=== PATIENT | male | born 1930 | race Caucasian/White ===

== ENCOUNTER 2016-07-06 12:54 | Inpatient (IN) | payer OTHER ==
[2016-07-06] MEDS ORDERED: SODIUM CHLORIDE 1,000 ML IV STA ×2 (13:34→20:41)
[2016-07-06 13:48] LABS: VENOUS PH 7.26 (7.32-7.42)
[2016-07-06 13:58] LABS: MCH 25.3 pg (25.7-33.7); MCHC 31.7 g/dl (32.0-35.9); MEAN CELL VOLUME 79.7 fl (80-96); MEAN PLT VOLUME 10.1 fl (7.5-11.1); PLATELET COUNT 57 K/MM3 (134-434); WHITE BLOOD COUNT 15.6 K/mm3 (4.0-10.0)
--- NOTE | 2016-07-06 14:09 | PDOC ---
History of Present Illness - General Chief Complaint: Urinary Problem Stated Complaint: SEPSIS Time Seen by Provider: 07/06/16 13:09 History Source: Longterm Records Exam Limitations: Dementia - History of Present Illness Initial Comments: 07/06/16 14:08 85-year-old male from [facility] sent in for evaluation of pyuria that was noted this morning after patient was not making urine and Herrera catheter was changed. Patient arrives with a blood pressure of 90/50 guarding over his suprapubic region. Patient is unable to communicate needs except that he is moaning and appears uncomfortable. Patient with history of recurrent UTI with indwelling Herrera catheter. Severity: moderate Associated Symptoms: reports: weakness, other Past History - Past Medical History Allergies/Adverse Reactions: Allergies Allergy/AdvReac Type Severity Reaction Status Date / Time No Known Allergies Allergy Verified 07/06/16 13:06 Cardiac Disorders: Yes (angina) GI Disorders: Yes (uti) HTN: Yes Hypercholesterolemia: Yes Psychiatric Problems: Yes (depression) - Psycho/Social/Smoking Cessation Hx Anxiety: No Suicidal Ideation: No Smoking History: Unknown if ever smoked Have you smoked in the past 12 months: No Information on smoking cessation initiated: No Hx Alcohol Use: No Drug/Substance Use Hx: No Patient Lives Alone: No Lives with/in: assisted Review of Systems - Review of Systems Able to Perform ROS?: Yes Constitutional: Yes: Weakness Respiratory: No: Symptoms reported Cardiac (ROS): No: Symptoms Reported ABD/GI: No: Symptoms Reported : Yes: Other Integumentary: No: Symptoms Reported *Physical Exam - Vital Signs Last Vital Signs Temp Pulse Resp BP Pulse Ox 98.7 F 104 H 24 93/50 98 07/06/16 13:06 07/06/16 13:06 07/06/16 13:06 07/06/16 13:06 07/06/16 13:06 - Physical Exam General Appearance: Yes: Nourished, Appropriately Dressed, Mild Distress HEENT: positive: EOMI, FABY, TMs Normal, Pharynx Normal (dry) Neck: positive: Normal Thyroid, Supple Respiratory/Chest: positive: Lungs Clear, Normal Breath Sounds. negative: Respiratory Distress, Accessory Muscle Use Cardiovascular: positive: Tachycardia. negative: Regular Rhythm, Murmur Gastrointestinal/Abdominal: positive: Normal Bowel Sounds, Soft, Guarding, Tenderness (mid suprapubic). negative: Distended, Hernia, Mass Male Genitalia: positive: other (Noted dry blood around the meatus) Musculoskeletal: negative: CVA Tenderness Extremity: positive: Normal Capillary Refill. negative: Pedal Edema Integumentary: positive: Dry, Warm Neurologic: positive: Motor Strength 5/5 (moving all extremeties actively) ED Treatment Course - LABORATORY CBC & Chemistry Diagram: 07/06/16 13:30 07/06/16 13:30 - ADDITIONAL ORDERS Additional order review: Laboratory Results 07/06/16 13:45 VBG pH 7.26 L POC VBG pCO2 34.6 L POC VBG pO2 36.8 Mixed VBG HCO3 15.0 L - RADIOLOGY Radiology Studies Ordered: Category Date Time Status CHEST X-RAY PORTABLE* [RAD] Stat Radiology 07/06/16 13:34 Ordered PELVIC / BLADDER US [US] Stat Ultrasound 07/06/16 13:35 Ordered Medical Decision Making - Critical Care Time Total Critical Care Time (minutes): 55 Critical Care Statement: The care of this patient involved high complexity decision making to prevent further life threatening deterioration of the patient 's condition and/or to evalute & treat vital organ system(s) failure or risk of failure. - Medical Decision Making 07/06/16 14:27 Sent over for pyuria. catheter was changed initially by the assisted since patient and no urine output in his catheter. Patient once he arrived here Herrera catheter #20 was removed and reinserted a #18 with noted pyuria so irrigated with 40 mL of sterile water and patient had return clear fluid. Patient ordered for septic workup including an ultrasound of the bladder. 07/06/16 14:44 Laboratory Tests 07/06/16 07/06/16 07/06/16 13:30 13:30 13:30 WBC 15.6 H Hgb 11.1 L Hct 34.9 L Plt Count 57 L VBG pH POC VBG pCO2 Mixed VBG HCO3 Sodium 139 Potassium 5.9 H Chloride 101 Carbon Dioxide 15 L Anion Gap 23 H BUN 88 H Creatinine 7.7 H* Creat Clearance w eGFR 6.72 Random Glucose 46 L* Lactic Acid 1.611 Calcium 7.7 L Total Bilirubin 0.8 AST 90 H ALT 49 Alkaline Phosphatase 101 Creatine Kinase 931 H Troponin I 0.13 H Total Protein 5.6 L Albumin 2.1 L Blood Type 07/06/16 07/06/16 13:30 13:45 WBC Hgb Hct Plt Count VBG pH 7.26 L POC VBG pCO2 34.6 L Mixed VBG HCO3 15.0 L Sodium Potassium Chloride Carbon Dioxide Anion Gap BUN Creatinine Creat Clearance w eGFR Random Glucose Lactic Acid Calcium Total Bilirubin AST ALT Alkaline Phosphatase Creatine Kinase Troponin I Total Protein Albumin Blood Type O POSITIVE For vancomycin D50, insulin, albuterol and calcium gluconate. Patient will need to go to the ICU and will consult belt line feeder and physician for admission. 07/06/16 14:49 Laboratory Tests 07/06/16 07/06/16 13:30 13:50 Creatinine 7.7 H* Random Glucose 46 L* Acetone, Qual Positive moderate 2+ 07/06/16 14:55 Case discussed with belt line feeder. Patient accepted to unit. Call placed to Dr. leary for admission. Patient will have repeat BGM shortly. Will hold on IV fluids since BP is maintaining 90s over 50s. 07/06/16 15:12\Case discussed with Dr. Leary and accepted patient to service. Patient still appears uncomfortable and is slightly tachycardic. Patient will be ordered for IV Tylenol. 07/06/16 16:16 Laboratory Tests 07/06/16 07/06/16 13:30 15:20 Neutrophils % 94.0 H POC Glucometer 128.11462 Chest x-ray negative for acute findings. Family at bedside. Patient appears more comfortable. Blood pressure remains stable *DC/Admit/Observation/Transfer Diagnosis at time of Disposition: Hyperkalemia, Hypoglycemia, Acute renal insufficiency Sepsis Qualifiers: Sepsis type: sepsis due to unspecified organism Qualified Code(s): A41.9 - Sepsis, unspecified organism UTI (urinary tract infection) Qualifiers: Urinary tract infection type: acute cystitis Hematuria presence: without hematuria Qualified Code(s): N30.00 - Acute cystitis without hematuria - Discharge Dispostion Admit: Yes - Referrals
[2016-07-06] MEDS ORDERED: LEVOFLOXACIN 750 MG IVPB 150 ML IVPB ONE ×2 (14:11→14:49)
[2016-07-06 14:12] LABS: INR 1.06 (0.82-1.09); PROTHROMBIN TIME (PATIENT) 11.7 SEC (9.98-11.88)
[2016-07-06 14:22] LABS: ALBUMIN 2.1 g/dl (3.4-5.0); BILIRUBIN,TOTAL 0.8 mg/dL (0.2-1.0); CALCIUM 7.7 mg/dL (8.5-10.1); TOT PROT 5.6 g/dl (6.4-8.2)
[2016-07-06 14:27] LABS: COCKROFT - GAULT 6.05; TROPONIN I 0.13 ng/ml (0.00-0.05)
[2016-07-06] MEDS ORDERED: DEXTROSE 50%-WATER 50 ML DISP.SYRIN ONE (14:38)
[2016-07-06 14:39] LABS: CREATININE 7.7 mg/dL (0.7-1.3)
[2016-07-06] MEDS ORDERED: DEXTROSE 50%-WATER - 25 GM/50 ML VIAL IVPUSH ONE ×2 (14:40→22:22)
[2016-07-06] MEDS ORDERED: VANCOMYCIN 1,000 MG in DEXTROSE 5%-WATER - 250 ML IVPB ONE (14:42)
[2016-07-06] MEDS ORDERED: SODIUM BICARBONATE 8.4% 50 MEQ/50 ML DISP.SYRIN IVPUSH ONE ×2 (14:46→22:28)
[2016-07-06] MEDS ORDERED: INSULIN REGULAR HUMAN 100 UNITS/ML *VIAL IVPUSH ONE ×2 (14:46→22:26)
[2016-07-06] MEDS ORDERED: CALCIUM GLUCONATE 10% - 1,000 MG/10 ML VIAL IVPUSH ONE (14:47)
[2016-07-06] MEDS ORDERED: SODIUM BICARBONATE 8.4% 50 MEQ/50 ML VIAL ONE (14:48)
[2016-07-06] MEDS ORDERED: CALCIUM GLUCONATE 10% - 1,000 MG/10 ML VIAL ONE (14:48)
[2016-07-06] MEDS ORDERED: VANCOMYCIN 1 GRAM (PRE-DOCKED) 250 ML IVPB ONE (14:48)
[2016-07-06] MEDS ORDERED: INSULIN REGULAR HUMAN 100 UNITS/ML *VIAL ONE (14:49)
[2016-07-06 14:57] LABS: METAMYELOCYTE 2 % (0-2)
[2016-07-06 14:58] LABS: PLATELET ESTIMATE DECREASED (NORMAL)
[2016-07-06 14:59] LABS: ACANTHOCYTES 2+; ANISOCYTOSIS 2+; MICROCYTOSIS 1+
[2016-07-06] MEDS ORDERED: ACETAMINOPHEN 1000 MG/100 ML VIAL (NON FORMULARY) IVPB ONE (15:12)
[2016-07-06] MEDS ORDERED: ACETAMINOPHEN INJECTION 100 ML IVPB ONE (15:23)
--- NOTE | 2016-07-06 16:10 | EKG ---
Test Reason : Blood Pressure : / mmHG Vent. Rate : 103 BPM Atrial Rate : 103 BPM P-R Int : 126 ms QRS Dur : 084 ms QT Int : 356 ms P-R-T Axes : 037 007 068 degrees QTc Int : 466 ms SINUS TACHYCARDIA LOW VOLTAGE QRS BORDERLINE ECG NO PREVIOUS ECGS AVAILABLE Confirmed by MOON CHAMBERS MD ([id number]) on 07/06/2016 4:10:17 PM Referred By: Confirmed By:MOON CHAMBERS MD
[2016-07-06 16:22] LABS: URINE APPEARANCE TURBID; URINE BILIRUBIN NEGATIVE (NEGATIVE); URINE BLOOD 3+ (NEGATIVE); URINE COLOR LYELLOW; URINE GLUCOSE (UA) NEGATIVE (NEGATIVE); URINE KETONE TRACE (NEGATIVE)
[2016-07-06 16:23] LABS: URINE LEUK ESTERASE 2+ (NEGATIVE); URINE NITRITE POSITIVE (NEGATIVE); URINE PROTEIN 3+ (NEGATIVE); URINE RBC 25-30 /hpf (0-3); URINE UROBILINOGEN 0.2 E.U/dl E.U./dl (0.2-1.0)
[2016-07-06 16:24] LABS: URINE BACTERIA FEW /hpf (NONE SEEN); URINE MUCUS MODERATE; URINE WBC TNTC /hpf (3-5)
[2016-07-06] MEDS ORDERED: DEXTROSE 5%-0.45% SALINE 1,000 ML IV SCH (18:45)
[2016-07-06] MEDS: morphine CARPU-JECT 2 MG/1 ML DISP.SYRIN IVPUSH PRN ×3 (19:17→23:36)
[2016-07-06] MEDS: PIPERACILLIN/TAZOB 2.25 GM/50 ML PRE-DOCKED BAG IVPB SCH (19:17)
--- NOTE | 2016-07-06 21:02 | CONSULT ---
Consult Consult Specialty:: Pulm/CCM Reason for Consultation:: UTI - History of Present Illness Chief Complaint: Suprapubic pain History of Present Illness: 85yom with PMHx HTN, HLD, Depression, chronic hameed cath brought in t ED from [facility] with pyuria. In ED BP 93/50, HR 104, 98.7, O2 sat 98% on room air. Pt indicated supra pubic pain. Hameed changed. Labs notable for WBC 15.6 N 94%, K 5.9, BUN/creat 88/7.7, lact 1.6, trop 0.13. Urine WBC too numerous to count. CXR lungs clear. Hyperkalemia cocktail given. Bolus 1L NS. Started on antibiotics Vanco, levaquin then to Zosyn. He was transferred to ICU for further managemt. Of note as per family pt is DNR/DNI comfort measures only. - History Source History Provided By: Medical Record Limitations to Obtaining History: Other (Pt moaning and incoherent) - Alcohol/Substance Use Hx Alcohol Use: No - Smoking History Smoking history: Unknown if ever smoked Have you smoked in the past 12 months: No Home Medications - Allergies Allergies/Adverse Reactions: Allergies Allergy/AdvReac Type Severity Reaction Status Date / Time No Known Allergies Allergy Verified 07/06/16 13:06 - Home Medications Home Medications: Ambulatory Orders Aa/Hydrolyzed Collagen, Whey [Lps Neutral Flavor Liquid] 30 ml PO DAILY Ascorbate Calcium [Vitamin C] 500 mg PO TID 07/06/16 Aspirin [ASA -] 81 mg PO DAILY 07/06/16 Atorvastatin Ca [Lipitor] 80 mg PO HS 07/06/16 Calcium Carbonate/Vitamin D3 [Oyster Shell 500-Vit D3 200 Tb] 1 each PO DAILY Ceftriaxone [Rocephin 1Gm Ivpb (Pre-Docked)] 1 gm IVPB BID 07/06/16 Docusate Sodium 100 mg PO HS 07/06/16 Escitalopram Oxalate [Lexapro -] 5 mg PO DAILY 07/06/16 Ferrous Sulfate 325 mg PO TID 07/06/16 L. Acidophilus/Pectin, [place] [Acidophilus Capsule] 1 each PO DAILY 07/06/16 Lactulose 15 ml PO DAILY PRN 07/06/16 Melatonin 3 mg PO HS 07/06/16 Menthol/Zinc Oxide [Calmoseptine Ointment] 0 gm TP TID 07/06/16 Metoprolol Tartrate 12.5 mg PO BID 07/06/16 Oxycodone HCl 5 mg PO PRN 07/06/16 Quetiapine Fumarate [Seroquel -] 25 mg PO HS 07/06/16 Ranitidine HCl [Zantac] 150 mg PO BID 07/06/16 Sennosides [Senna] 2 tab PO HS 07/06/16 Trazodone HCl 50 mg PO HS 07/06/16 Family Disease History - Family Disease History Family History: Unremarkable Review of Systems Unable to obtain ROS, reason: Unable-Dementia Physical Exam Vital Signs: Vital Signs Temperature 97.3 F L 07/06/16 17:58 Pulse Rate 94 H 07/06/16 18:30 Respiratory Rate 20 07/06/16 18:30 Blood Pressure 94/75 07/06/16 18:30 O2 Sat by Pulse Oximetry (%) 95 07/06/16 18:30 Constitutional: Yes: Well Nourished, Other (NAD) Eyes: Yes: Conjunctiva Clear, Other (constricted pupils) HENT: Yes: WNL, Other (dry MM) Neck: Yes: Supple, Trachea Midline Cardiovascular: Yes: Tachycardia, Other (no m/r/g noted) Respiratory: Yes: CTA Bilaterally Gastrointestinal: Yes: Normal Bowel Sounds, Soft Renal/: Yes: Hameed Present Extremities: Yes: Cool Edema: No Peripheral Pulses WNL: Yes Psychiatric: Yes: Other (Awake ; incoherent) Labs: CBC,CMP WBC 15.6 K/mm3 (4.0-10.0) H 07/06/16 13:30 RBC 4.38 M/mm3 (4.00-5.60) 07/06/16 13:30 Hgb 11.1 GM/dL (11.7-16.9) L 07/06/16 13:30 Hct 34.9 % (35.4-49) L 07/06/16 13:30 MCV 79.7 fl (80-96) L 07/06/16 13:30 MCHC 31.7 g/dl (32.0-35.9) L 07/06/16 13:30 RDW 21.0 % (11.9-15.9) H 07/06/16 13:30 Plt Count 57 K/MM3 (134-434) L 07/06/16 13:30 MPV 10.1 fl (7.5-11.1) 07/06/16 13:30 Neutrophils % 94.0 % (42.8-82.8) H 07/06/16 13:30 Lymphocytes % 2.0 % (8-40) L 07/06/16 13:30 Band Neutrophils 1.0 % (0-10) 07/06/16 13:30 Metamyelocytes 2 % (0-2) 07/06/16 13:30 Differential Comment Manual diff done 07/06/16 13:30 Platelet Estimate Decreased (NORMAL) 07/06/16 13:30 Anisocytosis 2+ 07/06/16 13:30 Microcytosis 1+ 07/06/16 13:30 Acanthocytes (Spur) 2+ 07/06/16 13:30 Sodium 139 mmol/L (136-145) 07/06/16 13:30 Potassium 5.9 mmol/L (3.5-5.1) H 07/06/16 13:30 Chloride 101 mmol/L (98-107) 07/06/16 13:30 Carbon Dioxide 15 mmol/L (21-32) L 07/06/16 13:30 Anion Gap 23 (8-16) H 07/06/16 13:30 BUN 88 mg/dL (7-18) H 07/06/16 13:30 Creatinine 7.7 mg/dL (0.7-1.3) H* 07/06/16 13:30 Creat Clearance w eGFR 6.72 (>60) 07/06/16 13:30 POC Glucometer 101.58962 UNITS (()) 07/06/16 17:14 Random Glucose 46 mg/dL (74-106) L* 07/06/16 13:30 Lactic Acid 1.611 mmol/L (0.4-2.0) 07/06/16 13:30 Calcium 7.7 mg/dL (8.5-10.1) L 07/06/16 13:30 Phosphorus 5.9 mg/dL (2.5-4.9) H 07/06/16 13:30 Total Bilirubin 0.8 mg/dL (0.2-1.0) 07/06/16 13:30 AST 90 U/L (15-37) H 07/06/16 13:30 ALT 49 U/L (12-78) 07/06/16 13:30 Alkaline Phosphatase 101 U/L (45-117) 07/06/16 13:30 Creatine Kinase 931 IU/L (39-308) H 07/06/16 13:30 Creatine Kinase Index 0.7 % (0.0-5.0) 07/06/16 13:30 CK-MB (CK-2) 7.360 ng/ml (0.5-3.6) H 07/06/16 13:30 CK-MB (CK-2) Rel Index Cancelled 07/06/16 13:30 Troponin I 0.13 ng/ml (0.00-0.05) H 07/06/16 13:30 Total Protein 5.6 g/dl (6.4-8.2) L 07/06/16 13:30 Albumin 2.1 g/dl (3.4-5.0) L 07/06/16 13:30 Imaging - Results Chest X-ray: Report Reviewed (Clear lung valentine) Problem List - Problems (1) Acute renal insufficiency Code(s): N28.9 - DISORDER OF KIDNEY AND URETER, UNSPECIFIED (2) Hyperkalemia Code(s): E87.5 - HYPERKALEMIA (3) Hypoglycemia Code(s): E16.2 - HYPOGLYCEMIA, UNSPECIFIED (4) Sepsis Code(s): A41.9 - SEPSIS, UNSPECIFIED ORGANISM Qualifiers: Sepsis type: sepsis due to unspecified organism Qualified Code(s): A41.9 - Sepsis, unspecified organism (5) UTI (urinary tract infection) Code(s): N39.0 - URINARY TRACT INFECTION, SITE NOT SPECIFIED Qualifiers: Urinary tract infection type: acute cystitis Hematuria presence: without hematuria Qualified Code(s): N30.00 - Acute cystitis without hematuria Assessment/Plan 85 yom NHR with chronic hameed now with urosepsis. Plan: -HD monitoring -NC O2 as needed -Fluid bolus as needed -Cont Zosyn as per ID -Hameed care -Monitor BMP -Medically manage hyperkalemia -Not a candidate for HD -Morphine prn for pain
[2016-07-06 22:16] LABS: CALCIUM 7.1 mg/dL (8.5-10.1); COCKROFT - GAULT 6.16; CREATININE 7.1 mg/dL (0.7-1.3)
[2016-07-06] MEDS ORDERED: CALCIUM GLUCONATE 10% - 1,000 MG/10 ML VIAL IVPB ONE (22:27)
[2016-07-07] MEDS: morphine CARPU-JECT 2 MG/1 ML DISP.SYRIN IVPUSH PRN ×5 (02:10→16:09)
[2016-07-07] MEDS: PIPERACILLIN/TAZOB 2.25 GM/50 ML PRE-DOCKED BAG IVPB SCH (02:12)
[2016-07-07 06:42] LABS: CALCIUM 7.1 mg/dL (8.5-10.1); COCKROFT - GAULT 6.39; CREATININE 7.1 mg/dL (0.7-1.3); MAGNESIUM 2.2 mg/dL (1.8-2.4); PHOSPHOROUS 3.9 mg/dL (2.5-4.9)
[2016-07-07] MEDS ORDERED: PIPERACILLIN/TAZOB 2.25 GM/50 ML PRE-DOCKED BAG IVPB SCH (10:00)
[2016-07-07 10:59] VITALS: BMI 20.2
--- NOTE | 2016-07-07 10:59 | CON.NEP ---
Consult Consult Specialty:: nephrology Reason for Consultation:: ckd - History of Present Illness Chief Complaint: pt cant give history History of Present Illness: 85-year-old male from [facility] sent in for evaluation of pyuria that was noted yesterday after patient was not making urine and Herrera catheter was changed. Patient arrived with a blood pressure of 90/50 guarding over his suprapubic region. Patient is unable to communicate needs except that he is moaning and appears uncomfortable. Patient with history of recurrent UTI with indwelling Herrera catheter. I saw him in ICU. Hew moaned but did not say anything. - History Source History Provided By: Medical Record Limitations to Obtaining History: Dementia - Alcohol/Substance Use Hx Alcohol Use: No - Smoking History Smoking history: Unknown if ever smoked Have you smoked in the past 12 months: No Home Medications - Allergies Allergies/Adverse Reactions: Allergies Allergy/AdvReac Type Severity Reaction Status Date / Time No Known Allergies Allergy Verified 07/06/16 13:06 - Home Medications Home Medications: Ambulatory Orders Aa/Hydrolyzed Collagen, Whey [Lps Neutral Flavor Liquid] 30 ml PO DAILY Ascorbate Calcium [Vitamin C] 500 mg PO TID 07/06/16 Aspirin [ASA -] 81 mg PO DAILY 07/06/16 Atorvastatin Ca [Lipitor] 80 mg PO HS 07/06/16 Calcium Carbonate/Vitamin D3 [Oyster Shell 500-Vit D3 200 Tb] 1 each PO DAILY Ceftriaxone [Rocephin 1Gm Ivpb (Pre-Docked)] 1 gm IVPB BID 07/06/16 Docusate Sodium 100 mg PO HS 07/06/16 Escitalopram Oxalate [Lexapro -] 5 mg PO DAILY 07/06/16 Ferrous Sulfate 325 mg PO TID 07/06/16 L. Acidophilus/Pectin, [place] [Acidophilus Capsule] 1 each PO DAILY 07/06/16 Lactulose 15 ml PO DAILY PRN 07/06/16 Melatonin 3 mg PO HS 07/06/16 Menthol/Zinc Oxide [Calmoseptine Ointment] 0 gm TP TID 07/06/16 Metoprolol Tartrate 12.5 mg PO BID 07/06/16 Oxycodone HCl 5 mg PO PRN 07/06/16 Quetiapine Fumarate [Seroquel -] 25 mg PO HS 07/06/16 Ranitidine HCl [Zantac] 150 mg PO BID 07/06/16 Sennosides [Senna] 2 tab PO HS 07/06/16 Trazodone HCl 50 mg PO HS 07/06/16 Review of Systems Unable to obtain ROS, reason: dementia Nephrology Consult - Height Height: 5 ft 8 in - Weight Weight: 133 lb 7 oz - BMI Body Mass Index (BMI): 20.2 - Lab Results CBC,BMP: CBC, BMP 07/07/16 05:15 Anion Gap: Anion Gap Anion Gap 11 (8-16) 07/07/16 05:15 - Imaging Chest X-ray: Report Reviewed (abdominal distention) - Physical Examination Vital Signs: Vital Signs Temperature 98 F 07/07/16 10:00 Pulse Rate 100 H 07/07/16 10:00 Respiratory Rate 25 H 07/07/16 10:00 Blood Pressure 123/99 07/07/16 10:00 O2 Sat by Pulse Oximetry (%) 96 07/07/16 08:01 Constitutional: Yes: Thin Eyes: Yes: Conjunctiva Clear HENT: Yes: Atraumatic, Normocephalic, Other (dry oral mucosa ?thrush) Neck: Yes: Supple, Trachea Midline Cardiovascular: Yes: Regular Rate and Rhythm, Murmur Respiratory: Yes: CTA Bilaterally Gastrointestinal: Yes: Soft, Tenderness (in suprapubic area) Renal/: Yes: Herrera Present Musculoskeletal: Yes: WNL Extremities: Yes: WNL Edema: No Integumentary: Yes: WNL Neurological: Yes: Alert, Aphasia Psychiatric: Yes: Alert Assessment/Plan IMPRESSION CKD Probable BELL UTI in patient with chronic indwelling catheter dementia proteinuria may be overflow or due to HTN. May also be more apparent due to volume depletion corrected calcium was normal hyperphosphatemia PLAN given suprapubic tenderness, I asked nurse to due a bladder scan and didnt show retention agree with ivf at current rate continue antibiotics DNR/DNI and comfort care only could benefit from acetic acid irrigation of bladder if he has significant sediment Dr Holloway to follow up tomorrow MV
--- NOTE | 2016-07-07 11:47 | PN ---
Progress Note (short form) - Note Progress Note: Seen and examined in ICU Confirmed DNR/DNI comfort measures only: no ABX, pressors Current Medications Dextrose/Sodium Chloride (D5-1/2ns -) 1,000 mls @ 100 mls/hr IV ASDIR JAIMEE Last Admin: 07/06/16 18:20 Dose: 100 mls/hr Morphine Sulfate (Morphine Injection -) 2 mg IVPUSH Q2H PRN PRN Reason: PAIN/ANXIETY Last Admin: 07/07/16 10:37 Dose: 2 mg Piperacillin Sod/Tazobactam Sod (Zosyn 2.25gm Ivpb (Pre-Docked)) 2.25 gm IVPB Q8H-IV JAIMEE Vital Signs Period Temp Pulse Resp BP Sys/Saleh Pulse Ox Last 24 Hr 97.3 F-98.7 F 89-125 16-30 87-123/48-99 95-100 Intake & Output 07/04/16 07/05/16 07/06/16 07/07/16 23:59 23:59 23:59 23:59 Intake Total 2650 750 Output Total 50 200 Balance 2600 550 Weight 58.377 kg 60.526 kg General: elderly man, refusing examination CBCD WBC 15.6 K/mm3 (4.0-10.0) H 07/06/16 13:30 RBC 4.38 M/mm3 (4.00-5.60) 07/06/16 13:30 Hgb 11.1 GM/dL (11.7-16.9) L 07/06/16 13:30 Hct 34.9 % (35.4-49) L 07/06/16 13:30 MCV 79.7 fl (80-96) L 07/06/16 13:30 MCHC 31.7 g/dl (32.0-35.9) L 07/06/16 13:30 RDW 21.0 % (11.9-15.9) H 07/06/16 13:30 Plt Count 57 K/MM3 (134-434) L 07/06/16 13:30 MPV 10.1 fl (7.5-11.1) 07/06/16 13:30 CMP Sodium 140 mmol/L (136-145) 07/07/16 05:15 Potassium 5.1 mmol/L (3.5-5.1) 07/07/16 05:15 Chloride 104 mmol/L (98-107) 07/07/16 05:15 Carbon Dioxide 25 mmol/L (21-32) D 07/07/16 05:15 Anion Gap 11 (8-16) 07/07/16 05:15 BUN 88 mg/dL (7-18) H 07/07/16 05:15 Creatinine 7.1 mg/dL (0.7-1.3) H 07/07/16 05:15 Creat Clearance w eGFR 6.72 (>60) 07/06/16 13:30 Random Glucose 150 mg/dL (74-106) H D 07/07/16 05:15 Calcium 7.1 mg/dL (8.5-10.1) L 07/07/16 05:15 Total Bilirubin 0.8 mg/dL (0.2-1.0) 07/06/16 13:30 AST 90 U/L (15-37) H 07/06/16 13:30 ALT 49 U/L (12-78) 07/06/16 13:30 Alkaline Phosphatase 101 U/L (45-117) 07/06/16 13:30 Total Protein 5.6 g/dl (6.4-8.2) L 07/06/16 13:30 Albumin 2.1 g/dl (3.4-5.0) L 07/06/16 13:30 CARDIAC ENZYMES Creatine Kinase 931 IU/L (39-308) H 07/06/16 13:30 Troponin I 0.13 ng/ml (0.00-0.05) H 07/06/16 13:30 A/P: -DNR/DNI CARPENTER PROTOTYPE -morphine for pain -d/c all other meds -ok for floor transfer vs back to [facility] ACNP Pulm/CCM
[2016-07-07] MEDS ORDERED: MORPHINE 100 MG in SODIUM CHLORIDE 98 ML IVPB SCH (13:00)
--- NOTE | 2016-07-07 17:28 | HP ---
DATE OF ADMISSION: 07/06/2016 The patient is an 85-year-old male who was transferred from the group home as patient was found to have difficulty in passing urine. He was in his usual state of health up until months ago, in October of 2015, when he had a fall and subsequently had a urinary tract infection. Patient, since then, has had several episodes of urinary tract infection and severe sepsis, has been repeatedly hospitalized and his overall health has since deteriorated. Recently he has been in the group home, when patient was noted to have pyuria. The Herrera catheter was changed, and since then, he had not voided any urine. He was brought in to the emergency room with hypotension and intravenous antibiotics have been started. The healthcare proxy and the family had contacted me and does not want any aggressive measures instituted for the patient, given his deteriorating, recurrent illness, and his advanced age. Patient, on his part, also is irritated and annoyed about his condition and wants to be left alone and not even touch or anything done to him. Other past medical history appears to be, reviewing his old medical records, acute renal insufficiency, hyperkalemia, hypoglycemia, recurrent urinary tract infection, and sepsis. His medications at home, or in the group home, were ferrous sulfate 325 mg daily, Rocephin 1 g, Zantac 150 mg twice a day, Seroquel 25 mg nightly p.r.n., melatonin, calcium with vitamin D, vitamin C 500 mg 2 times a day, trazodone 50 mg nightly, Lipitor 80 mg daily, senna 2 tablets daily, Lexapro 5 mg daily, metoprolol 12.5 mg twice a day, Colace 100 mg daily, aspirin 81 mg daily, and lactulose on a p.r.n. basis. ALLERGIES: None. SOCIAL HISTORY: He is single. He has no children. Social history, family history, and review of systems are not available due to patient's mental condition. PHYSICAL EXAMINATION: Vital Signs: He has a blood pressure of 116/59, pulse rate of 100, respiratory rate of 16, temperature 98. Head and Neck: He is not ill, not icteric. JVD is absent. Thyroid and carotids appear normal. Heart: Regular rhythm. No murmurs. Lungs: Vesicular breathing. Clear. Abdomen: Right lower quadrant and suprapubic tenderness. Bowel sounds are heard. Hernial orifices are intact. Extremities: No edema. He has a white count of 15,600, with 94% neutrophils, PT/INR is normal. Basic metabolic profile has a BUN of 88, creatinine of 7.1, otherwise is within normal limits. Urinalysis has 3+ protein, 3+ blood, and 2+ leukocyte esterase. ASSESSMENT AND PLAN: 1. Urinary tract infection, sepsis, advanced age. As per healthcare proxy's wishes and patient's wishes, would discontinue curative measures. We had a lengthy conversation with his sister, who is the healthcare proxy, and 3 of her children assisting her in the conversation this morning for well over half an hour. All these things were explained to everybody in detail and that was their wish as well. As such, we will discontinue all curative measures and only administer palliative care with p.r.n. Tylenol, p.r.n. morphine for pain, and observe in the coming next few days. If necessary discharge has to be made, would consider hospice with group home or care. 2. Hypertension, hyperlipidemia: Given his present condition, would also discuss curative measures for these, and preventative medications to be discontinued and the family is in agreement. Would stop all nonessential and curative measures. JERRELL RUSH M.D. [id number]
[2016-07-08] MEDS ORDERED: MORPHINE 100 MG in SODIUM CHLORIDE 98 ML IVPB SCH (01:31)
[2016-07-08] MEDS ORDERED: morphine CARPU-JECT 2 MG/1 ML DISP.SYRIN IVPUSH PRN (01:31)
--- NOTE | 2016-07-08 10:58 | PN ---
Progress Note, Physician Chief Complaint: Unable to obtain - Current Medication List Current Medications: Active Medications Morphine Sulfate 100 mg/ (Sodium Chloride) 100 mls @ 1 mls/hr IVPB TITR JAIMEE; 1 MG/HR PRN Reason: Protocol Morphine Sulfate (Morphine Injection -) 2 mg IVPUSH Q2H PRN PRN Reason: PAIN/ANXIETY - Objective Vital Signs: Vital Signs Temperature 99.2 F 07/08/16 05:50 Pulse Rate 99 H 07/08/16 05:50 Respiratory Rate 8 L 07/08/16 05:50 Blood Pressure 102/69 07/08/16 05:50 O2 Sat by Pulse Oximetry (%) 96 07/07/16 08:01 Constitutional: Yes: No Distress, Calm Cardiovascular: Yes: Regular Rate and Rhythm. No: Gallop, Murmur, Rub Respiratory: Yes: Regular, Rales. No: Rhonchi, Wheezes Gastrointestinal: Yes: Normal Bowel Sounds, Soft. No: Distention, Tenderness Extremities: Yes: WNL Edema: No Labs: CBC, BMP 07/07/16 05:15 INR, PTT INR 1.06 (0.82-1.09) 07/06/16 13:30 Problem List - Problems (1) Sepsis Code(s): A41.9 - SEPSIS, UNSPECIFIED ORGANISM Qualifiers: Sepsis type: sepsis due to unspecified organism Qualified Code(s): A41.9 - Sepsis, unspecified organism (2) UTI (urinary tract infection) Code(s): N39.0 - URINARY TRACT INFECTION, SITE NOT SPECIFIED Qualifiers: Urinary tract infection type: acute cystitis Hematuria presence: without hematuria Qualified Code(s): N30.00 - Acute cystitis without hematuria (3) Acute renal insufficiency Code(s): N28.9 - DISORDER OF KIDNEY AND URETER, UNSPECIFIED Assessment/Plan -patient admitted, placed on comfort measures -continue morphine gtt -attempted to call HCP, went to voicemail
--- NOTE | 2016-07-08 12:50 | PN ---
Progress Note, Physician History of Present Illness: Pt seen and examined. He is on comfort care. - Current Medication List Current Medications: Active Medications Morphine Sulfate 100 mg/ (Sodium Chloride) 100 mls @ 1 mls/hr IVPB TITR JAIMEE; 1 MG/HR PRN Reason: Protocol Morphine Sulfate (Morphine Injection -) 2 mg IVPUSH Q2H PRN PRN Reason: PAIN/ANXIETY - Objective Vital Signs: Vital Signs Temperature 97.5 F L 07/08/16 10:00 Pulse Rate 96 H 07/08/16 10:00 Respiratory Rate 12 07/08/16 10:00 Blood Pressure 90/54 07/08/16 10:00 O2 Sat by Pulse Oximetry (%) 96 07/07/16 08:01 Constitutional: Yes: Calm Cardiovascular: Yes: S1, S2 Respiratory: Yes: Bradypnea Genitourinary: Yes: Herrera Present Musculoskeletal: Yes: Muscle Weakness Edema: No Neurological: Yes: Lethargy Labs: CBC, BMP 07/07/16 05:15 INR, PTT INR 1.06 (0.82-1.09) 07/06/16 13:30 Assessment/Plan Current Medications Generic Name Dose Route Start Last Admin Trade Name Freq PRN Reason Stop Dose Admin Morphine Sulfate 100 mg/ 100 mls @ 1 mls/hr 07/08/16 01:31 Sodium Chloride IVPB TITR JAIMEE Protocol 1 MG/HR Morphine Sulfate 2 mg 07/08/16 01:31 Morphine Injection - IVPUSH Q2H PRN PAIN/ANXIETY Impression 1. CKD with acute component 2. UTI 3. dementia 4. sepsis 5. BELL Plan - pt is now on comfort care - cont care per primary team - will follow PRN Dr Holloway
[2016-07-08] MEDS: MORPHINE 100 MG in SODIUM CHLORIDE 98 ML IVPB SCH (23:02)
--- NOTE | 2016-07-09 12:58 | PN ---
Progress Note, Physician Chief Complaint: Unable to obtain - Current Medication List Current Medications: Active Medications Morphine Sulfate 100 mg/ (Sodium Chloride) 100 mls @ 3 mls/hr IVPB TITR JAIMEE; 3 MG/HR PRN Reason: Protocol Last Titration: 07/08/16 23:03 Dose: 6 mg/hr Morphine Sulfate (Morphine Injection -) 2 mg IVPUSH Q2H PRN PRN Reason: PAIN/ANXIETY - Objective Vital Signs: Vital Signs Temperature 99.7 F H 07/09/16 10:00 Pulse Rate 97 H 07/09/16 10:00 Respiratory Rate 12 07/09/16 10:00 Blood Pressure 94/39 07/09/16 10:00 O2 Sat by Pulse Oximetry (%) 95 07/08/16 20:46 Constitutional: Yes: Other (sedated) Cardiovascular: Yes: Regular Rate and Rhythm Respiratory: Yes: Other (agonal breathing) Labs: CBC, BMP 07/07/16 05:15 INR, PTT INR 1.06 (0.82-1.09) 07/06/16 13:30 Problem List - Problems (1) Sepsis Code(s): A41.9 - SEPSIS, UNSPECIFIED ORGANISM Qualifiers: Sepsis type: sepsis due to unspecified organism Qualified Code(s): A41.9 - Sepsis, unspecified organism (2) UTI (urinary tract infection) Code(s): N39.0 - URINARY TRACT INFECTION, SITE NOT SPECIFIED Qualifiers: Urinary tract infection type: acute cystitis Hematuria presence: without hematuria Qualified Code(s): N30.00 - Acute cystitis without hematuria (3) Acute renal insufficiency Code(s): N28.9 - DISORDER OF KIDNEY AND URETER, UNSPECIFIED Assessment/Plan -continue morphine gtt -agonal breathing -will place on inpatient hospice, suspect less than 2 weeks of life
[2016-07-09] MEDS: MORPHINE 100 MG in SODIUM CHLORIDE 98 ML IVPB SCH (16:24)
[2016-07-10] MEDS ORDERED: MORPHINE SULFATE IVPB ONE (10:41)
[2016-07-10] MEDS: MORPHINE 100 MG in SODIUM CHLORIDE 98 ML IVPB SCH (10:43)
--- NOTE | 2016-07-10 11:47 | PN ---
Progress Note, Physician Chief Complaint: Unable to obtain - Current Medication List Current Medications: Active Medications Morphine Sulfate 100 mg/ (Sodium Chloride) 100 mls @ 3 mls/hr IVPB TITR JAIMEE; 3 MG/HR PRN Reason: Protocol Last Admin: 07/10/16 10:43 Dose: 6 mls/hr Morphine Sulfate (Morphine Injection -) 2 mg IVPUSH Q2H PRN PRN Reason: PAIN/ANXIETY - Objective Vital Signs: Vital Signs Temperature 99.9 F H 07/10/16 06:00 Pulse Rate 98 H 07/10/16 06:00 Respiratory Rate 12 07/10/16 06:00 Blood Pressure 81/34 07/10/16 06:00 O2 Sat by Pulse Oximetry (%) 99 07/09/16 21:00 Gastrointestinal: Yes: Other (agonal breathing) Labs: CBC, BMP 07/07/16 05:15 INR, PTT INR 1.06 (0.82-1.09) 07/06/16 13:30 Problem List - Problems (1) Sepsis Code(s): A41.9 - SEPSIS, UNSPECIFIED ORGANISM Qualifiers: Sepsis type: sepsis due to unspecified organism Qualified Code(s): A41.9 - Sepsis, unspecified organism (2) UTI (urinary tract infection) Code(s): N39.0 - URINARY TRACT INFECTION, SITE NOT SPECIFIED Qualifiers: Urinary tract infection type: acute cystitis Hematuria presence: without hematuria Qualified Code(s): N30.00 - Acute cystitis without hematuria (3) Acute renal insufficiency Code(s): N28.9 - DISORDER OF KIDNEY AND URETER, UNSPECIFIED Assessment/Plan -continue morphine gtt -agonal breathing -inpatient hospice
[2016-07-11] MEDS: MORPHINE 100 MG in SODIUM CHLORIDE 98 ML IVPB SCH ×2 (05:59→18:28)
--- NOTE | 2016-07-11 15:07 | PN ---
Progress Note, Physician Chief Complaint: Unable to obtain - Current Medication List Current Medications: Active Medications Morphine Sulfate 100 mg/ (Sodium Chloride) 100 mls @ 3 mls/hr IVPB TITR JAIMEE; 3 MG/HR PRN Reason: Protocol Last Admin: 07/11/16 05:59 Dose: 6 mls/hr - Objective Vital Signs: Vital Signs Temperature 101.4 F H 07/11/16 06:00 Pulse Rate 50 L 07/11/16 06:00 Respiratory Rate 7 L 07/11/16 09:00 Blood Pressure 100/36 07/11/16 06:00 O2 Sat by Pulse Oximetry (%) 99 07/11/16 09:00 Respiratory: Yes: Other (agonal) Labs: CBC, BMP 07/07/16 05:15 INR, PTT INR 1.06 (0.82-1.09) 07/06/16 13:30 Problem List - Problems (1) Sepsis Code(s): A41.9 - SEPSIS, UNSPECIFIED ORGANISM Qualifiers: Sepsis type: sepsis due to unspecified organism Qualified Code(s): A41.9 - Sepsis, unspecified organism (2) UTI (urinary tract infection) Code(s): N39.0 - URINARY TRACT INFECTION, SITE NOT SPECIFIED Qualifiers: Urinary tract infection type: acute cystitis Hematuria presence: without hematuria Qualified Code(s): N30.00 - Acute cystitis without hematuria (3) Acute renal insufficiency Code(s): N28.9 - DISORDER OF KIDNEY AND URETER, UNSPECIFIED Assessment/Plan -continue morphine gtt -agonal breathing -inpatient hospice
[2016-07-11] MEDS ORDERED: PT OWN MED DRAWER 7, Y5N ONE (18:42)
--- NOTE | 2016-07-12 12:06 | PN ---
Progress Note, Physician Chief Complaint: Unable to obtain - Current Medication List Current Medications: Active Medications Morphine Sulfate 100 mg/ (Sodium Chloride) 100 mls @ 3 mls/hr IVPB TITR JAIMEE; 3 MG/HR PRN Reason: Protocol Last Admin: 07/11/16 18:28 Dose: 6 mls/hr - Objective Vital Signs: Vital Signs Temperature 99.5 F 07/12/16 10:00 Pulse Rate 84 07/12/16 11:22 Respiratory Rate 10 L 07/12/16 10:00 Blood Pressure 91/42 07/12/16 10:00 O2 Sat by Pulse Oximetry (%) 96 07/12/16 11:22 Respiratory: Yes: Other (agonal) Labs: CBC, BMP 07/07/16 05:15 INR, PTT INR 1.06 (0.82-1.09) 07/06/16 13:30 Problem List - Problems (1) Sepsis Code(s): A41.9 - SEPSIS, UNSPECIFIED ORGANISM Qualifiers: Sepsis type: sepsis due to unspecified organism Qualified Code(s): A41.9 - Sepsis, unspecified organism (2) UTI (urinary tract infection) Code(s): N39.0 - URINARY TRACT INFECTION, SITE NOT SPECIFIED Qualifiers: Urinary tract infection type: acute cystitis Hematuria presence: without hematuria Qualified Code(s): N30.00 - Acute cystitis without hematuria (3) Acute renal insufficiency Code(s): N28.9 - DISORDER OF KIDNEY AND URETER, UNSPECIFIED Assessment/Plan -continue morphine gtt -agonal breathing -inpatient hospice
[2016-07-12] MEDS: MORPHINE 100 MG in SODIUM CHLORIDE 98 ML IVPB SCH (16:41)
[2016-07-13] MEDS ORDERED: LORAZEPAM CARPU-JECT 2 MG/ML DISP.SYRIN ONE (06:56)
[2016-07-13] MEDS ORDERED: LORAZEPAM CARPU-JECT 2 MG/ML DISP.SYRIN IVPUSH ONE (07:15)
--- NOTE | 2016-07-13 07:36 | PN ---
Progress Note (short form) - Note Progress Note: PATIENT ON HOSPICE IN PATIENT CARE / RECURRENT UTI'S / SEPSIS SYNDROME / DEMENTIA / BELL / CKD IN BED WITH AGONAL RESPIRATIONS. ON MORPHINE DRIP P/E <> AGONAL BREATHING COR <> S 1 S 2 HS DISTANT CHEST <> DECREASED BS THROUGHOUT ALL LUNG CROFT. IMP <> END STAGE CARE FOR SEPSIS / UTI / DEMENTIA / BELL PLAN <> MORPHINE DRIP.
[2016-07-13] MEDS: MORPHINE 100 MG in SODIUM CHLORIDE 98 ML IVPB SCH (10:30)
--- NOTE | 2016-07-14 07:23 | PN ---
Progress Note (short form) - Note Progress Note: PATIENT POORLY RESPONSIVE / AGONAL RESPIRATIONS. END STAGE / HOSPICE CARE . TEMP 101 YESTERDAY / SEPSIS / UTI / DEMENTIA / BELL / CKD SUPPORTIVE CARE P/E <> AGONAL RESPIRATIONS / UNRESPONSIVE COR <> S 1 S 2 HS DISTANT CHEST <> POOR AIR ENTRY . PLAN> > >HOSPICE CARE MORPHINE DRIP.
[2016-07-14] MEDS: MORPHINE 100 MG in SODIUM CHLORIDE 98 ML IVPB SCH ×2 (13:00)
[2016-07-14 15:33] VITALS: PULSE 85
[2016-07-15 02:34] VITALS: BP 80/46; TEMP 99.9
--- NOTE | 2016-07-15 06:58 | HOSP ---
Subjective - Review of Symptoms Events since last encounter: Subjective: patient unresponsive Physical Examination Vital Signs: Vital Signs 07/14/16 22:00 07/14/16 22:00 07/14/16 22:00 07/14/16 22:00 07/12/16 22:00 vitals absent Findings/Remarks: patieetn cold, cyanotic, unhresponsive to pain, abnsent corneal reflex, no breath or hear sounds Constitutional: Yes: Pallor Eyes: Yes: Other (fixed pupils) Cardiovascular: Yes: Other (no heart sounds) Gastrointestinal: Yes: Other (no breath sounds) Neurological: Yes: Other (absent corneam reflex) Labs: CBC, BMP 07/07/16 05:15 Hospitalist Encounter Assessment: patient . TOD 650 am notify family, pcp Visit type - Emergency Visit Emergency Visit: Yes ED Registration Date: 07/06/16 Care time: The patient presented to the Emergency Department on the above date and was hospitalized for further evaluation of their emergent condition. - New Patient This patient is new to me today: Yes Date on this admission: 07/15/16 - Critical Care Critical Care patient: No
--- NOTE | 2016-08-29 08:15 | DS ---
DATE OF ADMISSION: 07/06/2016 DATE OF : 07/15/2016 ADMISSION DIAGNOSIS: Urinary tract infection with sepsis. CAUSE OF : 1. Urinary tract infection with sepsis. 2. Acute renal insufficiency. HOSPITAL COURSE: Please refer to history and physical examination, but in short, the patient is an 85-year-old gentleman who came in with UTI with sepsis. He was seen by Nephrology for his renal failure. He was also on IV antibiotics. However, in spite of this, he did improve. The case was discussed with patients family. He was made comfort measures only. Patient on July 15, 2016. CHARITO MCKEON M.D. [id number]
== END 2016-07-15 06:50 | disposition expired | DRG 872 ==
LOC: JER 12:54 → SUPCPDRO 12:54 → JERBED 14:57 → JICU 18:20 → J8W 07-07 22:41
PROVIDERS: ADMIT Internal Medicine; ATTEND Internal Medicine
DX: A41.9 Sepsis, unspecified organism (principal); N39.0 Urinary tract infection, site not specified; N17.9 Acute kidney failure, unspecified; F03.90 Unspecified dementia, unspecified severity, without behavioral disturbance, psychotic disturbance, mood disturbance, and anxiety; E83.39 Other disorders of phosphorus metabolism; E78.5 Hyperlipidemia, unspecified; I12.9 Hypertensive chronic kidney disease with stage 1 through stage 4 chronic kidney disease, or unspecified chronic kidney disease; N18.9 Chronic kidney disease, unspecified; E87.5 Hyperkalemia
CPT/HCPCS: 36415; 71010-TC; 76856-TC; 80048; 80053; 81003; 81015; 82009; 82550; 82553; 82803; 83605; 83735; 84100; 84484; 85025; 85610; 86850; 86900; 86901; 87040; 87086; 87186; 93005; 93010; 99285-25